=== PATIENT | male | born 1990 | race Caucasian/White ===

== ENCOUNTER 2017-11-26 19:16 | Emergency (ER) | payer OTHER, SELFPAY ==
[2017-11-26 19:18] VITALS: BP 127/80; PULSE 96; RESP 18; TEMP 37.2; O2SAT 99; BMI 34.7
--- NOTE | 2017-11-26 19:20 | RAD_ITS ---
STUDY: X-RAY - RIGHT RADIUS AND ULNA REASON FOR EXAM: Male, 27 years old. Trauma TECHNIQUE: 2 view(s) of the forearm. COMPARISON: None. FINDINGS: There is no demonstrated soft tissue swelling. Normal visualized radius. Normal visualized ulna. RAD/Forearm 2 Views IMPRESSION: Normal x-ray examination of the radius and ulna. Electronically Signed: Miguel Arvizu MD at 19:39 EDT , Service support ,
--- NOTE | 2017-11-26 20:42 | ED.VISSUMM ---
- ER Visit Summary Date of Service: 11/26/17 Chief Complaint: Right arm injury History of Present Illness: The patient is a 27 M presenting with right arm injury. Patient was at work earlier today and a wooden board hit him on the arm. A sharp edge cut his right dorsal forearm. He has no other injuries. His tetanus is up-to-date. He does not want to file Worker's Compensation. Physical Examination: Vitals are stable. Patient is afebrile. Alert no acute distress. HEENT exam is unremarkable. Lungs are clear and equal bilaterally. Heart is regular rate and rhythm. Extremities right dorsal forearm 1 cm laceration. AFROM, NVID. Skin is warm and dry. No focal neurologic deficit. Remainder of exam is unremarkable. Emergency Department Course and Treatment: X-ray of the right forearm shows no acute process. His tetanus is up-to-date. He declined suturing. He states he would just like the wound dressed. Wound care instructions were given. Advised to follow-up with his primary care physician. Advised return to ED if worsening complaints. Disposition: Discharge home Impression: Right arm contusion, laceration This note was generated with [employer] dictation software. It may contain incorrect words, spelling, and punctuation that were not noted in review of the chart prior to signing ED Disposition - Plan for ED Patient: Chief Complaint: Upper Extremity Injury Referrals: NOT,DEFINED [Primary Care Provider] -
--- NOTE | 2017-11-26 20:45 | ED.DEP ---
ED Disposition - Plan for ED Patient: Chief Complaint: Upper Extremity Injury Instructions: ED Contusion Upper Ext Referrals: NOT,DEFINED [Primary Care Provider] -
--- NOTE | 2017-11-26 20:48 | ED.DEP ---
ED Disposition - Plan for ED Patient: Chief Complaint: Upper Extremity Injury Instructions: ED Contusion Upper Ext Referrals: NOT,DEFINED [Primary Care Provider] -
[2017-11-26 20:56] VITALS: BP 141/88; PULSE 78; RESP 17; O2SAT 97
== END 2017-11-26 20:57 | disposition home or self-care (01) ==
LOC: ED 20:50
PROVIDERS: Emergency Provider Emergency Medicine
DX: S40.021A Contusion of right upper arm, initial encounter (principal); S51.811A Laceration without foreign body of right forearm, initial encounter; W26.8XXA Contact with other sharp object(s), not elsewhere classified, initial encounter; W22.8XXA Striking against or struck by other objects, initial encounter; Y93.9 Activity, unspecified; Y92.9 Unspecified place or not applicable
CPT/HCPCS: 73090; 99282